=== PATIENT | female | born 1950 | race Caucasian/White ===

== ENCOUNTER 2016-08-22 11:38 | Emergency (ER) | payer MEDICARE, OTHER ==
[~2016-08-22 11:38] MED LIST: ACCUNEB INH; ADVIL CONGESTION PO; ALAVERT10 MG PO; ALBUTEROL INH; AMB10 PO; AMBIEN CR12.5 MG PO; ATV.5 PO; BREO ELLIPTA 21 EACH INH; DEXILANT PO; DULERA 100 MCG/13 GM INH; DULERA 200 MCG/13 GM INH; ERY-TAB250 MG PO; FLONASE NAS; FLORASTOR250 MG PO; KAPIDEX60 MG PO; LEVAQUIN750 MG PO; MULTIPLE VIT PO; NASONEX NAS; P10 PO; P20 PO; PEP20 PO; PROVHFA INH; PROZAC40 MG PO; PULRESP.5 INH; Pepcid PO; SINGULAIR1 PO; SPIRIVA INH; TESS PO; VOLTAREN1 % TOP; Z-PAK PO; ZYRTEC ALLGY10 MG PO; [UNRECOGNIZED DRUG - OTHER] PO; [UNRECOGNIZED DRUG - OTHER] PO
[2016-11-30] MEDS ORDERED: HYDROCHLOROT12.5 MG PO (16:10)
[2016-11-30] MEDS ORDERED: ZITHROMAX500 MG PO (16:10)
== END 2016-08-22 12:52 | disposition home or self-care (01) ==
LOC: ER 11:38
DX: S20.211A Contusion of right front wall of thorax, initial encounter (principal); J45.909 Unspecified asthma, uncomplicated; K21.9 Gastro-esophageal reflux disease without esophagitis; Z91.040 Latex allergy status; Z79.52 Long term (current) use of systemic steroids; Z79.899 Other long term (current) drug therapy; W10.9XXA Fall (on) (from) unspecified stairs and steps, initial encounter
CPT/HCPCS: 71020; 71100-RT; 72072; 96372; 99284; J1170

== ENCOUNTER 2017-02-18 08:40 | Day surgery (SDC) | payer MEDICARE, OTHER ==
[~2017-02-18] VITALS: Ht 152.4 cm; Wt 79.8 kg
--- NOTE | ~2017-02-18 | PUL ---
[id number] [place]. [address] NAME: RONAL QUEEN : 50 STATUS : [facility]#: [id number] AGE: 66 ADM/REG DATE : 02/18/17 MR#: [id number] REPORT SERV DATE: 02/19/17 DICTATED BY: BEL STAUFFER DATE: 02/19/17 REPORT STATUS : Draft TRANSCRIBED BY: MODL DATE: 02/19/17 PULMONARY FUNCTION TEST DIAGNOSIS: Asthma. RESULTS: 1. FEV1 of 1.54 L (77% of predicted). 2. FVC 1.73 L (65% of predicted). 3. FEV1/FVC ratio 89%. IMPRESSION: There is no evidence of obstruction. The forced vital capacity is reduced suggestive of a possible restriction. PS/MODL Bel Stauffer M.D. / [id number] CC: Estella Santana M.D.
--- NOTE | ~2017-02-18 | OP ---
Record Of Operation [facility] [address] [place]. [address] NAME: RONAL QUEEN : 50 STATUS : [facility]#: [id number] AGE: 66 ADM/REG DATE : 02/18/17 MR#: [id number] REPORT SERV DATE: 02/18/17 DICTATED BY: TRAY SHORE DATE: 02/18/17 REPORT STATUS : Draft TRANSCRIBED BY: JET DATE: 02/18/17 DATE OF PROCEDURE: PROCEDURE PERFORMED: Diagnostic bronchoscopy with bronchial thermoplasty. INDICATIONS: For persistent asthma. This is the third and final bronchial thermoplasty treatment for Ms. Queen. Prior to the procedure, she had a baseline spirometry which showed an FEV1 of 77%, well within the 80% range of her best results. She received general anesthesia under the care of Anesthesiology with placement of an oral endotracheal tube. Topical anesthesia was with lidocaine. After the patient was sedated, we advanced the bronchoscope via the endotracheal tube without difficulty and the entire bronchial tree was inspected. She had somewhat scant thick, but mostly clear secretions throughout. We started the thermoplastic treatment on the right upper lobe posterior segment, walked out way to the apical segment, anterior segment, upper lobe bronchus, then apicoposterior segment of the left upper lobe, anterior segment of the left upper lobe, lingular segment, and then the left upper lobe bronchus. There were a total of 50 activations. The patient tolerated the procedure well with no immediate complications. The patient will be transferred to recovery and monitored. The patient received premedication with Zofran and dexamethasone and will continue to take her postprocedure oral steroids at home as per protocol. HALEIGH/JET Tray Shore M.D. / [id number] CC: Estella Santana M.D.
[~2017-02-18 08:40] MED LIST changes: +HYDROCHLOROT12.5 MG PO; +ZITHROMAX500 MG PO
[2017-02-18 09:05] LABS: HEMATOCRIT 44.2 % (36.0-48.0); HEMOGLOBIN 14.8 g/dL (12.0-16.0)
[2017-02-18 09:29] LABS: ALBUMIN 3.6 G/DL (3.5-5.0); ALKALINE PHOSPHATASE 124 U/L (45-117); BUN (BLOOD UREA NITROGEN) 25 MG/DL (6-23); CALCIUM, SERUM 9.6 MG/DL (8.5-10.4); CHLORIDE, SERUM 103 MMOL/L (96-112); CO2 (CARBON DIOXIDE) 26 MMOL/L (24-34); CREATININE 1.31 MG/DL (0.55-1.02); DIRECT BILIRUBIN 0.1 MG/DL (0.0-0.4); GFR AFRICAN AMERICAN 49 ML/MIN (>=60); GFR NON AFRICAN AMERICAN 42 ML/MIN (>=60); GLUCOSE, SERUM 132 MG/DL (60-99); INDIRECT BILIRUBIN(NOT ORDER) 0.3 MG/DL (0.1-0.9); POTASSIUM, SERUM 3.4 MMOL/L (3.5-5.3); SGOT(AST) 21 U/L (5-40); SGPT(ALT) 32 U/L (5-65); SODIUM, SERUM 139 MMOL/L (135-148); TOTAL BILIRUBIN 0.4 MG/DL (0-1.2); TOTAL PROTEIN 7.2 G/DL (6.0-8.5)
== END 2017-02-18 15:00 | disposition home or self-care (01) ==
LOC: DMU 08:40
PROVIDERS: Anesthesiology; Internal Medicine Pulmonary Disease
PROC: 0B5 Respiratory System, Destruction (ICD-10-PCS; 2017-02-18)
PROC: 0B5 Respiratory System, Destruction (ICD-10-PCS; principal; 2017-02-18 10:00)
DX: J45.909 Unspecified asthma, uncomplicated (principal); I10 Essential (primary) hypertension; I47.1 Supraventricular tachycardia; I35.0 Nonrheumatic aortic (valve) stenosis; F41.9 Anxiety disorder, unspecified; Z85.3 Personal history of malignant neoplasm of breast; Z79.810 Long term (current) use of selective estrogen receptor modulators (SERMs); Z79.51 Long term (current) use of inhaled steroids; Z79.899 Other long term (current) drug therapy; Z91.040 Latex allergy status; Z90.89 Acquired absence of other organs; Z90.49 Acquired absence of other specified parts of digestive tract; Z90.12 Acquired absence of left breast and nipple; Z90.710 Acquired absence of both cervix and uterus; Z98.890 Other specified postprocedural states
CPT/HCPCS: 80048; 80076; 85014; 85018; 93005; 94010; 94640; A9270-GY; C1886; J0330; J2175; J2250; J2405; J2550; J2710; J2930; J3010